=== PATIENT | male | born 1990 | race Caucasian/White ===

== ENCOUNTER 2025-03-08 20:00 | Emergency (ER) | payer OTHER ==
[2025-03-08 20:15] VITALS: BP 129/83; PULSE 73; RESP 19; TEMP 98.5; BMI 23.6
== END 2025-03-08 21:32 | disposition home or self-care (01) ==
LOC: JER 20:00 → JERFT 20:00
DX: S93.601A Unspecified sprain of right foot, initial encounter (principal); W20.8XXA Other cause of strike by thrown, projected or falling object, initial encounter; Y99.0 Civilian activity done for income or pay
CPT/HCPCS: 73610-TC-RT-FY; 73630-TC-RT-FY